=== PATIENT | female | born 1980 | race Caucasian/White ===

== ENCOUNTER 2020-01-06 22:17 | Observation (INO) | payer OTHER ==
[2020-01-06 23:08] LABS: Basophils # (A) 0.1 k/uL (0-0.2); Basophils % (A) 1 %; Eosinophils # (A) 0.3 k/uL (0-0.7); Eosinophils % (A) 4 %; HCT 44.7 % (34.0-46.0); HGB 14.5 gm/dL (11.4-16.0); Lymphocytes # (A) 3.4 k/uL (1.0-4.8); Lymphocytes % (A) 38 %; MCH 29.8 pg (25.0-35.0); MCHC 32.4 g/dL (31.0-37.0); MCV 91.9 fL (80.0-100.0); Mean Platelet Volume 7.2; Monocytes # (A) 0.4 k/uL (0-1.0); Monocytes % (A) 4 %; Neutrophils # (A) 4.5 k/uL (1.3-7.7); Neutrophils % (A) 51 %; Platelet Count 401 k/uL (150-450); RBC 4.87 m/uL (3.80-5.40); RDW 12.6 % (11.5-15.5); WBC 8.9 k/uL (3.8-10.6)
[2020-01-06 23:21] LABS: ALT 50 U/L (4-34); AST 41 U/L (14-36); African American GFR (CKD) >90 (>60 ml/min/1.73 sqM); Albumin 5.1 g/dL (3.5-5.0); Alkaline Phosphatase 94 U/L (38-126); Anion Gap 12 mmol/L; Blood Urea Nitrogen 14 mg/dL (7-17); Carbon Dioxide 25 mmol/L (22-30); Chloride 100 mmol/L (98-107); Glucose 108 mg/dL (74-99); Non-African American GFR(CKD) >90 (>60 ml/min/1.73 sqM); Potassium 3.9 mmol/L (3.5-5.1); Sodium 137 mmol/L (137-145); Total Bilirubin 0.4 mg/dL (0.2-1.3)
[2020-01-06 23:31] LABS: Appearance,Urine Clear (Clear); Bacteria,Urine Occasional /hpf; Bilirubin,Urine Negative (Negative); Blood,Urine Trace (Negative); Color,Urine Light Yellow; Glucose,Urine (UA) Negative (Negative); Ketones,Urine Negative (Negative); Leukocyte Esterase,Urine Negative (Negative); Mucus,Urine Rare /hpf; Nitrite,Urine Negative (Negative); PH, Urine 5.5 (5.0-8.0); Protein,Urine Negative (Negative); RBC,Urine <1 /hpf (0-5); Specific Gravity,Urine 1.008 (1.001-1.035); Squamous Epithelial Cell,Urine 1 /hpf (0-4); Urobilinogen,Urine <2.0 mg/dL (<2.0); WBC,Urine 1 /hpf (0-5)
[2020-01-07] MEDS ORDERED: ONDANSETRON 4 MG/2 ML VIAL IVP STA (00:09)
[2020-01-07] MEDS ORDERED: MORPHINE SULFATE 4 MG/ML SYRINGE IVP STA (00:10)
--- NOTE | 2020-01-07 00:11 | US ---
EXAMINATION TYPE: US transvaginal DATE OF EXAM: 01/06/2020 COMPARISON: CLINICAL HISTORY: pelvic pain. Right side pain, hx of ovarian cysts per patient TECHNIQUE: Transvaginal (TV). Date of LMP: 12/29/2019, EXAM MEASUREMENTS: Uterus: 9.0 x 5.2 x 4.7 cm Endometrial Stripe: cm Right Ovary: 2.9 x 2.4 x 2.1 cm Left Ovary: 3.8 x 2.8 x 2.6 cm 1. Uterus: Anteverted Heterogenous 2. Endometrium: 0.7 3. Right Ovary: follicles 4. Left Ovary: cystic appearing lesion with internal homogenous echoes= 2.6 x2.4 x 2.7 cm Spectral, color and waveform doppler imaging shows good arterial and venous flow within the ovaries ; there is no evidence for ovarian torsion. 5. Bilateral Adnexa: wnl 6. Posterior cul-de-sac: no free fluid IMPRESSION: There is complex cyst on the left ovary with internal echoes that could be hemorrhagic cyst. No free fluid. Normal uterus and endometrium. No evidence of ovarian torsion.
[2020-01-07] MEDS ORDERED: SODIUM CHLORIDE 0.9% 500 ML 500 ML IV ONE (00:40)
[2020-01-07] MEDS ORDERED: SODIUM CHLORIDE 0.9% 1,000 ML IV ONE ×2 (00:40→11:20)
[2020-01-07] MEDS ORDERED: NALOXONE 0.4 MG/ML 1 ML VIAL IV PRN (00:43)
[2020-01-07] MEDS ORDERED: MORPHINE SULFATE 4 MG/ML SYRINGE IV PRN (00:43)
--- NOTE | 2020-01-07 00:43 | ED ---
Abdominal Pain HPI - General Chief Complaint: Abdominal Pain Stated Complaint: Abdominal pain, poss ovarian cyst Time Seen by Provider: 01/06/20 22:42 Source: patient Mode of arrival: ambulatory Limitations: no limitations - History of Present Illness Initial Comments: 39yo female RLQ pain x 1 week. Nausea, no vomiting, No diarrhea. states she has had low grade fever. Patient has no complaints of melena, hematochezia. Denies chest pain, SOB. Patient has no additional complaints. Upon arrival she appears well. She states the pain feels similar to when she has had ovarian cysts in the past. - Related Data Previous Rx's Medication Instructions Recorded Naproxen [Naprosyn] 500 mg PO Q12HR #24 tab 12/29/15 Allergies Allergy/AdvReac Type Severity Reaction Status Date / Time No Known Allergies Allergy Verified 01/06/20 22:35 Review of Systems ROS Statement: Those systems with pertinent positive or pertinent negative responses have been documented in the HPI. ROS Other: All systems not noted in ROS Statement are negative. Past Medical History Additional Past Medical History / Comment(s): sinus infection, yeast infection, ovarian cyst History of Any Multi-Drug Resistant Organisms: None Reported Past Surgical History: Section Past Psychological History: No Psychological Hx Reported Smoking Status: Never smoker Past Alcohol Use History: None Reported Past Drug Use History: None Reported General Exam - General Exam Comments Initial Comments: General: The patient is awake and alert, in no distress Eye: Pupils are equal, round and reactive to light, extra-ocular movements are intact. No nystagmus. There is normal conjunctiva bilaterally. No signs of icterus. Cardiovascular: There is a regular rate and rhythm. No murmur, rub or gallop is appreciated. Respiratory: Lungs are clear to auscultation, respirations are non-labored, breath sounds are equal. No wheezes, stridor, rales, or rhonchi. Gastrointestinal: Soft, non-distended, RLQ tenderness to palpation of the abdomen, specifically McBurneys point, remaining abdomen is nontender and is without masses or organomegaly noted. There is no rebound or guarding present. Musculoskeletal: Normal ROM, no tenderness. Strength 5/5. Sensation intact. Pulses equal bilaterally 2+. Neurological: A&O x 3. CN II-XII intact grossly, There are no obvious motor or sensory deficits. Coordination appears grossly intact. Speech is normal. Skin: Skin is warm and dry and no rashes or lesions are noted. Psychiatric: Cooperative, appropriate mood & affect, normal judgment. Limitations: no limitations Course Vital Signs 01/06/20 22:31 Temperature 98.2 F Pulse Rate 85 Respiratory 20 Rate Blood Pressure 125/85 O2 Sat by Pulse 99 Oximetry Medical Decision Making - Medical Decision Making 39yo female presenting today for RLQ pain. Described as what felt like her ovarian pain. Pain at McBurneys point and US no right sided abnormality. CT obtained revealing acute appendicitis. Patient admitted for surgical cons ultation. Zosyn, IV analgesics and IVF initiated in the ER. Dr. Roberts accepted case after speaking with attending Dr. Ye - Lab Data Result diagrams: 01/06/20 22:50 01/06/20 22:50 Lab Results 01/06/20 01/06/20 01/06/20 Range/Units 22:50 22:50 22:50 WBC 8.9 (3.8-10.6) k/uL RBC 4.87 (3.80-5.40) m/uL Hgb 14.5 (11.4-16.0) gm/dL Hct 44.7 (34.0-46.0) % MCV 91.9 (80.0-100.0) fL MCH 29.8 (25.0-35.0) pg MCHC 32.4 (31.0-37.0) g/dL RDW 12.6 (11.5-15.5) % Plt Count 401 (150-450) k/uL Neutrophils % 51 % Lymphocytes % 38 % Monocytes % 4 % Eosinophils % 4 % Basophils % 1 % Neutrophils # 4.5 (1.3-7.7) k/uL Lymphocytes # 3.4 (1.0-4.8) k/uL Monocytes # 0.4 (0-1.0) k/uL Eosinophils # 0.3 (0-0.7) k/uL Basophils # 0.1 (0-0.2) k/uL Sodium (137-145) mmol/L Potassium (3.5-5.1) mmol/L Chloride (98-107) mmol/L Carbon Dioxide (22-30) mmol/L Anion Gap mmol/L BUN (7-17) mg/dL Creatinine (0.52-1.04) mg/dL Est GFR (CKD-EPI)AfAm (>60 ml/min/1.73 sqM) Est GFR (CKD-EPI)NonAf (>60 ml/min/1.73 sqM) Glucose (74-99) mg/dL Calcium (8.4-10.2) mg/dL Total Bilirubin (0.2-1.3) mg/dL AST (14-36) U/L ALT (4-34) U/L Alkaline Phosphatase (38-126) U/L Total Protein (6.3-8.2) g/dL Albumin (3.5-5.0) g/dL Urine Color Light Yellow Urine Appearance Clear (Clear) Urine pH 5.5 (5.0-8.0) Ur Specific [place] 1.008 (1.001-1.035) Urine Protein Negative (Negative) Urine Glucose (UA) Negative (Negative) Urine Ketones Negative (Negative) Urine Blood Trace H (Negative) Urine Nitrite Negative (Negative) Urine Bilirubin Negative (Negative) Urine Urobilinogen <2.0 (<2.0) mg/dL Ur Leukocyte Esterase Negative (Negative) Urine RBC <1 (0-5) /hpf Urine WBC 1 (0-5) /hpf Ur Squamous Epith Cells 1 (0-4) /hpf Urine Bacteria Occasional H (None) /hpf Urine Mucus Rare H (None) /hpf Urine HCG, Qual Not Detected (Not Detectd) 01/06/20 Range/Units 22:50 WBC (3.8-10.6) k/uL RBC (3.80-5.40) m/uL Hgb (11.4-16.0) gm/dL Hct (34.0-46.0) % MCV (80.0-100.0) fL MCH (25.0-35.0) pg MCHC (31.0-37.0) g/dL RDW (11.5-15.5) % Plt Count (150-450) k/uL Neutrophils % % Lymphocytes % % Monocytes % % Eosinophils % % Basophils % % Neutrophils # (1.3-7.7) k/uL Lymphocytes # (1.0-4.8) k/uL Monocytes # (0-1.0) k/uL Eosinophils # (0-0.7) k/uL Basophils # (0-0.2) k/uL Sodium 137 (137-145) mmol/L Potassium 3.9 (3.5-5.1) mmol/L Chloride 100 (98-107) mmol/L Carbon Dioxide 25 (22-30) mmol/L Anion Gap 12 mmol/L BUN 14 (7-17) mg/dL Creatinine 0.74 (0.52-1.04) mg/dL Est GFR (CKD-EPI)AfAm >90 (>60 ml/min/1.73 sqM) Est GFR (CKD-EPI)NonAf >90 (>60 ml/min/1.73 sqM) Glucose 108 H (74-99) mg/dL Calcium 10.0 (8.4-10.2) mg/dL Total Bilirubin 0.4 (0.2-1.3) mg/dL AST 41 H (14-36) U/L ALT 50 H (4-34) U/L Alkaline Phosphatase 94 (38-126) U/L Total Protein 9.0 H (6.3-8.2) g/dL Albumin 5.1 H (3.5-5.0) g/dL Urine Color Urine Appearance (Clear) Urine pH (5.0-8.0) Ur Specific [place] (1.001-1.035) Urine Protein (Negative) Urine Glucose (UA) (Negative) Urine Ketones (Negative) Urine Blood (Negative) Urine Nitrite (Negative) Urine Bilirubin (Negative) Urine Urobilinogen (<2.0) mg/dL Ur Leukocyte Esterase (Negative) Urine RBC (0-5) /hpf Urine WBC (0-5) /hpf Ur Squamous Epith Cells (0-4) /hpf Urine Bacteria (None) /hpf Urine Mucus (None) /hpf Urine HCG, Qual (Not Detectd) Disposition Clinical Impression: Appendicitis, Right lower quadrant abdominal pain Disposition: ADMITTED IP TO THIS HOSP Condition: Stable Is patient prescribed a controlled substance at d/c from ED?: No Referrals: Ang Meyers MD [Primary Care Provider] - 1-2 days Time of Disposition: 00:42 Decision to Admit Reason: Admit from EC Decision Date: 01/07/20 Decision Time: 00:42
[2020-01-07] MEDS ORDERED: PIPERACILLIN-TAZOBACTAM 3.375 GM in SODIUM CHLORIDE 0.9% 100 ML IVPB ONE (00:45)
--- NOTE | 2020-01-07 00:45 | CT ---
EXAMINATION TYPE: CT abdomen pelvis w con DATE OF EXAM: 01/07/2020 COMPARISON: None HISTORY: RLQ abdominal pain. CT DLP: 827.6 mGycm Automated exposure control for dose reduction was used. CONTRAST: Performed with IV Contrast, patient injected with 100mL mL of Isovue 300. Images were obtained from the diaphragm to the floor the pelvis with IV contrast. Lung bases are clear. There is no pleural effusion. Heart size is normal. There is no pericardial eff usion. Liver spleen stomach pancreas gallbladder appear normal. Bile ducts are not dilated. There is no adrenal mass. Kidneys show satisfactory contrast opacification. There is no hydronephrosi s. Ureters are not dilated. Bladder distends smoothly. There is no inguinal hernia. Uterus is antever carlita. There is no free fluid in the pelvis. There is 4 cm rounded fluid density on the left ovary. There ar e small cyst on the right ovary that measure up to 1.5 cm. There is no mesenteric edema. There is no ascites or free air. There is no bowel obstruction. Termina l ileum appears normal. There is minimal fat stranding and fluid in the right paracolic gutter. Cecum appears normal. I see no cecal wall thickening. The appendix is partly visualized and measures 7 to 8 mm. The lumbar vertebra have normal spacing and alignment. Posterior elements are intact. Bony pelvis is intact. IMPRESSION: Bilateral ovarian cysts. Larger on the left side. Inflammatory changes around the cecum with suggestion of slightly thickened appendix that measures up to 8 mm and suspicious for appendicitis.
[2020-01-07] MEDS: SODIUM CHLORIDE 0.9% 1,000 ML IV SCH ×3 (01:18→16:40)
[2020-01-07] MEDS ORDERED: HYDROmorphone 1 MG/ML 1 ML SYRINGE IVP PRN (01:50)
[2020-01-07 06:29] LABS: Glucose,Whole Blood 95 mg/dL (75-99)
--- NOTE | 2020-01-07 10:48 | P.GSHP ---
History of Present Illness H&P Date: 01/07/20 Chief Complaint: Abdominal pain 39-year-old female presents to the ER yesterday with right lower quadrant pain. This is actually been going on for she states almost a week. Said she had some low-grade fevers as well. Slightly diminished appetite. No vomiting. Mild nausea. White blood cell count here is normal. Says her pain is similar to when she said ovarian cysts in the past. Ultrasound of the pelvis showed no definite abnormalities. She is afebrile here. CAT scan was obtained and demonstrates thickened appendix with inflammatory changes consistent with acute appendicitis. - Review of Systems Comment: The patient denies any acute changes in vision or hearing, no dysphagia or odynophagia, no chest pain or shortness of breath, no dysuria or hematuria, no headache, no runny nose, no rectal bleeding or melena, no unexplained weight loss Past Medical History Additional Past Medical History / Comment(s): sinus infection, yeast infection, ovarian cyst. Heavy periods History of Any Multi-Drug Resistant Organisms: None Reported Past Surgical History: Section Past Anesthesia/Blood Transfusion Reactions: No Reported Reaction Past Psychological History: No Psychological Hx Reported Smoking Status: Former smoker Past Alcohol Use History: None Reported Past Drug Use History: None Reported - Past Family History Mother Family Medical History: Hyperlipidemia Father Family Medical History: Myocardial Infarction (ND) Additional Family Medical History / Comment(s): Heavy heart disease history Medications and Allergies Home Medications Medication Instructions Recorded Confirmed Type Naproxen Sodium [Aleve] 440 mg PO Q4-6H PRN 01/07/20 01/07/20 History Allergies Allergy/AdvReac Type Severity Reaction Status Date / Time No Known Allergies Allergy Verified 01/07/20 08:42 Surgical - Exam Vital Signs Temp Pulse Resp BP Pulse Ox 98.2 F 85 20 125/85 99 01/06/20 22:31 01/06/20 22:31 01/06/20 22:31 01/06/20 22:31 01/06/20 22:31 Physical exam: General: Well-developed, well-nourished HEENT: Normocephalic, sclerae nonicteric Abdomen: Right lower quadrant tenderness, nondistended Extremities: No edema Neuro: Alert and oriented Results - Labs 01/06/20 22:50 01/06/20 22:50 Abnormal Lab Results - Last 24 Hours (Table) 01/06/20 01/06/20 Range/Units 22:50 22:50 Glucose 108 H (74-99) mg/dL AST 41 H (14-36) U/L ALT 50 H (4-34) U/L Total Protein 9.0 H (6.3-8.2) g/dL Albumin 5.1 H (3.5-5.0) g/dL Urine Blood Trace H (Negative) Urine Bacteria Occasional H (None) /hpf Urine Mucus Rare H (None) /hpf Diabetes panel 01/06/20 Range/Units 22:50 Sodium 137 (137-145) mmol/L Potassium 3.9 (3.5-5.1) mmol/L Chloride 100 (98-107) mmol/L Carbon Dioxide 25 (22-30) mmol/L BUN 14 (7-17) mg/dL Creatinine 0.74 (0.52-1.04) mg/dL Glucose 108 H (74-99) mg/dL Calcium 10.0 (8.4-10.2) mg/dL AST 41 H (14-36) U/L ALT 50 H (4-34) U/L Alkaline Phosphatase 94 (38-126) U/L Total Protein 9.0 H (6.3-8.2) g/dL Albumin 5.1 H (3.5-5.0) g/dL Calcium panel 01/06/20 Range/Units 22:50 Calcium 10.0 (8.4-10.2) mg/dL Albumin 5.1 H (3.5-5.0) g/dL Pituitary panel 01/06/20 Range/Units 22:50 Sodium 137 (137-145) mmol/L Potassium 3.9 (3.5-5.1) mmol/L Chloride 100 (98-107) mmol/L Carbon Dioxide 25 (22-30) mmol/L BUN 14 (7-17) mg/dL Creatinine 0.74 (0.52-1.04) mg/dL Glucose 108 H (74-99) mg/dL Calcium 10.0 (8.4-10.2) mg/dL Adrenal panel 01/06/20 Range/Units 22:50 Sodium 137 (137-145) mmol/L Potassium 3.9 (3.5-5.1) mmol/L Chloride 100 (98-107) mmol/L Carbon Dioxide 25 (22-30) mmol/L BUN 14 (7-17) mg/dL Creatinine 0.74 (0.52-1.04) mg/dL Glucose 108 H (74-99) mg/dL Calcium 10.0 (8.4-10.2) mg/dL Total Bilirubin 0.4 (0.2-1.3) mg/dL AST 41 H (14-36) U/L ALT 50 H (4-34) U/L Alkaline Phosphatase 94 (38-126) U/L Total Protein 9.0 H (6.3-8.2) g/dL Albumin 5.1 H (3.5-5.0) g/dL Assessment and Plan (1) Appendicitis Narrative/Plan: Clinical scenario discussed with the patient. We'll proceed with laparoscopic, possible open appendectomy at this time. Risks of bleeding, infection, abscess, bladder bowel and ureteral injury, hernia, conversion to an open procedure. She understands and wishes to proceed. Current Visit: Yes Status: Acute Code(s): K37 - UNSPECIFIED APPENDICITIS SNOMED Code(s): 99532453
[2020-01-07] MEDS: PIPERACILLIN-TAZOBACTAM 3.375 GM in SODIUM CHLORIDE 0.9% 100 ML IVPB SCH ×2 (11:00→16:39)
[2020-01-07] MEDS ORDERED: PROPOFOL 10 MG/ML 20 ML VIAL IV ONE (11:15)
[2020-01-07] MEDS ORDERED: NEOSTIGMINE 1 MG/ML 10 ML VIAL ONE (11:15)
[2020-01-07] MEDS ORDERED: MIDAZOLAM 2 MG/2 ML VIAL ONE (11:15)
[2020-01-07] MEDS ORDERED: SUCCINYLCHOLINE CHLORIDE 100 MG/5 ML SYR IV ONE (11:15)
[2020-01-07] MEDS ORDERED: GLYCOPYRROLATE 0.2 MG/ML 2 ML VIAL ONE (11:15)
[2020-01-07] MEDS ORDERED: fentaNYL (PF) 50 MCG/ML 2 ML AMP ONE (11:15)
[2020-01-07] MEDS ORDERED: HYDROmorphone (PF) 1 MG/ML ONE (11:15)
[2020-01-07] MEDS ORDERED: ROCURONIUM BROMIDE 10 MG/ML 5 ML VIAL IV ONE (11:15)
[2020-01-07] MEDS ORDERED: LIDOCAINE 1% INJ 10MG/ML (20 ML MDV) ONE (11:15)
[2020-01-07] MEDS ORDERED: LIDOCAINE 1%-EPI 1:100,000 20 ML VIAL SQ ONE (11:59)
[2020-01-07] MEDS ORDERED: LACTATED RINGERS 1,000 ML IV ONE (12:10)
[2020-01-07] MEDS ORDERED: ACETAMINOPHEN IV (For NPO) 1,000 MG in EMPTY BAG 1 BAG IVPB ONE (12:37)
--- NOTE | 2020-01-07 12:46 | P.OP ---
Date of Procedure: 01/07/20 Procedure(s) Performed: PREOPERATIVE DIAGNOSIS: Acute appendicitis POSTOPERATIVE DIAGNOSIS: Severe endometriosis with acute appendicitis PROCEDURE: Laparoscopic appendectomy SURGEON: Alejandra EBL: 20 mL ANESTHESIA: General COMPLICATIONS: None OPERATIVE PROCEDURE: The patient was brought and placed on the operating table in the supine position. The patient was placed under general anesthesia. The abdomen was prepped and draped in the usual sterile fashion. A small vertical infraumbilical incision was made. The fascia was retracted anteriorly with Efra forceps. The Veress needle was advanced into the peritoneal cavity. The saline drop test was normal. Insufflation took place to 15 mmHg. A 5 mm trocar was then placed. An additional 5 mm suprapubic trocar was placed under direct visualization as well as a 12 mm left lower quadrant trocar under direct visualization. The patient had some bloody fluid in the pelvis from recent menses. We quickly identified numerous endometriosis deposits throughout the pelvis both on the small bowel, colon, and reproductive organs. The ovaries and fallopian tubes appeared to be densely adherent to the posterior wall of the uterus. There was significant inflammation on a chronic nature between the posterior aspect of the uterus and the sigmoid colon as well. The appendix was not visualized immediately. There was induration at the base of the cecum with again a hemorrhagic appearance consistent with acute on chronic endometriosis. The LigaSure device and the pusher was utilized to identify the appendix junction with the cecum. This was mildly inflamed as well. The appendix seemed to be fairly short in nature and was controlled back on itself and stuck to itself from the endometriosis. No evidence of perforation or gangrene was seen. I was able to utilize the endoscopic blue load stapler to divide the appendix more on the cecum side than typical removing a small portion of the base of the cecum. We were away from the ileocecal valve when stapling. Small area of bleeding was seen along the staple line and clipped using a 12 m clipper. The mesoappendix had been divided using the LigaSure device. One identifiable vessel in the mesoappendix was clipped as well. The appendix was removed from the abdominal cavity using an Endo Catch bag. The abdomen was irrigated. No bleeding was seen. The fascia at the 12 mm site was closed using a [id number] 0 Vicryl stitch. The skin at all 3 sites was closed using 4-0 Monocryl sutures. Skin glue was then applied. DISPOSITION: Stable to recovery room
[2020-01-07] MEDS ORDERED: HYDROmorphone 1 MG/ML 1 ML SYRINGE IVP ONE ×3 (13:13→13:20)
[2020-01-07] MEDS ORDERED: KETOROLAC 30 MG/ML 1 ML VIAL IVP ONE ×2 (13:18→13:19)
[2020-01-07] MEDS ORDERED: ACETAMINOPHEN IV (For NPO) 1,000 MG/100 ML VIAL IVPB ONE ×2 (13:28)
[2020-01-07] MEDS ORDERED: HYDROmorphone 0.5 MG/0.5 ML SYRINGE IVP ONE ×2 (13:40→13:44)
[2020-01-07] MEDS: HEPARIN SODIUM,PORCINE 5,000 UNIT/ML 1 ML VIAL SQ SCH (16:39)
[2020-01-07] MEDS: HYDROmorphone 1 MG/ML 1 ML SYRINGE IVP PRN ×2 (16:46→22:32)
[2020-01-07] MEDS: ONDANSETRON 4 MG/2 ML VIAL IVP PRN (21:06)
[2020-01-08] MEDS: PIPERACILLIN-TAZOBACTAM 3.375 GM in SODIUM CHLORIDE 0.9% 100 ML IVPB SCH ×2 (00:27→09:05)
[2020-01-08] MEDS: HEPARIN SODIUM,PORCINE 5,000 UNIT/ML 1 ML VIAL SQ SCH ×2 (00:27→09:05)
[2020-01-08] MEDS: SODIUM CHLORIDE 0.9% 1,000 ML IV SCH ×2 (00:28→09:07)
[2020-01-08] MEDS: ONDANSETRON 4 MG/2 ML VIAL IVP PRN (04:44)
[2020-01-08] MEDS: HYDROcodone/APAP 5-325MG 1 EACH TAB PO PRN ×3 (04:44→13:17)
[2020-01-08 07:55] LABS: Basophils % (A) 0 %; Eosinophils # (A) 0.1 k/uL (0-0.7); Eosinophils % (A) 1 %; HCT 34.3 % (34.0-46.0); Lymphocytes # (A) 2.3 k/uL (1.0-4.8); Lymphocytes % (A) 24 %; MCH 29.8 pg (25.0-35.0); MCHC 32.1 g/dL (31.0-37.0); MCV 92.8 fL (80.0-100.0); Mean Platelet Volume 7.2; Monocytes # (A) 0.4 k/uL (0-1.0); Monocytes % (A) 4 %; Neutrophils # (A) 6.7 k/uL (1.3-7.7); Neutrophils % (A) 69 %; Platelet Count 253 k/uL (150-450); RDW 12.8 % (11.5-15.5); WBC 9.7 k/uL (3.8-10.6)
--- NOTE | 2020-01-08 08:54 | P.DS ---
Providers Date of admission: 01/07/20 01:42 Expected date of discharge: 01/08/20 Attending physician: David Roberts Primary care physician: Ang Meyers - Discharge Diagnosis(es) (1) Appendicitis Patient minute yesterday for acute appendicitis. Was found to have fairly severe endometriosis. This was contributing to the appendicitis. Doing better today. Pain is improved. She is afebrile. 1 episode of vomiting yesterday. Tolerated breakfast this morning. Incisions clean and dry. Anticipate discharge later today. Follow-up one week. Current Visit: Yes Status: Acute Patient Condition at Discharge: Stable Plan - Discharge Summary New Discharge Prescriptions: New Hydrocodone/Acetaminophen [[place] 5-325] 1 tab PO Q6HR PRN 3 Days #10 tab PRN Reason: Pain No Action Naproxen Sodium [Aleve] 440 mg PO Q4-6H PRN PRN Reason: Pain Discharge Medication List Hydrocodone/Acetaminophen [[place] 5-325] 1 tab PO Q6HR PRN 3 Days #10 tab 01/07/20 [Rx] Naproxen Sodium [Aleve] 440 mg PO Q4-6H PRN 01/07/20 [History] Follow up Appointment(s)/Referral(s): David Roberts MD [Medical Doctor] - 1 Week Agn Meyers MD [Primary Care Provider] - 1-2 days
[2020-01-08 09:20] VITALS: PULSE 68; RESP 16
[2020-01-08 11:54] VITALS: BP 104/65; TEMP 98.4
== END 2020-01-08 16:20 | disposition home or self-care (01) ==
LOC: EC 22:17 → 6PED 01-07 01:42
PROVIDERS: ADMIT Surgery; ATTEND Surgery
DX: K35.80 Unspecified acute appendicitis (principal); N80.5 Endometriosis of intestine; K21.9 Gastro-esophageal reflux disease without esophagitis; J45.909 Unspecified asthma, uncomplicated; N83.209 Unspecified ovarian cyst, unspecified side; N92.0 Excessive and frequent menstruation with regular cycle; Z87.891 Personal history of nicotine dependence; Z82.49 Family history of ischemic heart disease and other diseases of the circulatory system; Z79.1 Long term (current) use of non-steroidal anti-inflammatories (NSAID); Z11.59 Encounter for screening for other viral diseases
CPT/HCPCS: 44970; 99285; 36415; 80053; 85025 ×2; 81001; 81025; 93975; 76830; 74177; G0378 ×2; U0003; J2543 ×2; J2270; J1644 ×2; J2405 ×2; J1885; J1170 ×2; J0131; Q9967; 88304; 88342

== ENCOUNTER 2020-02-21 12:18 | Emergency (ER) | payer OTHER ==
[2020-02-21 12:26] VITALS: RESP 18; TEMP 98.4
[2020-02-21] MEDS ORDERED: ONDANSETRON 4 MG/2 ML VIAL IVP STA (12:45)
[2020-02-21] MEDS ORDERED: HYDROmorphone 0.5 MG/0.5 ML SYRINGE IVP STA (12:45)
[2020-02-21] MEDS ORDERED: SODIUM CHLORIDE 0.9% 1,000 ML IV STA ×2 (12:45)
[2020-02-21 13:05] LABS: Appearance,Urine Clear (Clear); Bilirubin,Urine Negative (Negative); Blood,Urine Negative (Negative); Color,Urine Colorless; Glucose,Urine (UA) Negative (Negative); Ketones,Urine 1+ (Negative); Leukocyte Esterase,Urine Negative (Negative); Nitrite,Urine Negative (Negative); PH, Urine 5.5 (5.0-8.0); Protein,Urine Negative (Negative); Specific Gravity,Urine 1.002 (1.001-1.035); Urobilinogen,Urine <2.0 mg/dL (<2.0)
[2020-02-21 13:06] LABS: Basophils # (A) 0.1 k/uL (0-0.2); Basophils % (A) 1 %; Eosinophils # (A) 0.2 k/uL (0-0.7); Eosinophils % (A) 3 %; HCT 40.8 % (34.0-46.0); HGB 13.3 gm/dL (11.4-16.0); Lymphocytes # (A) 2.5 k/uL (1.0-4.8); Lymphocytes % (A) 32 %; MCH 29.5 pg (25.0-35.0); MCHC 32.5 g/dL (31.0-37.0); MCV 90.6 fL (80.0-100.0); Mean Platelet Volume 7.1; Monocytes # (A) 0.4 k/uL (0-1.0); Monocytes % (A) 5 %; Neutrophils # (A) 4.4 k/uL (1.3-7.7); Neutrophils % (A) 57 %; Platelet Count 282 k/uL (150-450); RDW 12.6 % (11.5-15.5); WBC 7.7 k/uL (3.8-10.6)
[2020-02-21 13:20] LABS: ALT 25 U/L (4-34); AST 27 U/L (14-36); African American GFR (CKD) >90 (>60 ml/min/1.73 sqM); Albumin 4.8 g/dL (3.5-5.0); Alkaline Phosphatase 107 U/L (38-126); Amylase 60 U/L (30-110); Anion Gap 11 mmol/L; Blood Urea Nitrogen 9 mg/dL (7-17); Calcium 9.9 mg/dL (8.4-10.2); Carbon Dioxide 23 mmol/L (22-30); Chloride 102 mmol/L (98-107); Glucose 93 mg/dL (74-99); Non-African American GFR(CKD) 88 (>60 ml/min/1.73 sqM); Sodium 136 mmol/L (137-145); Total Bilirubin 0.8 mg/dL (0.2-1.3)
--- NOTE | 2020-02-21 14:11 | ED ---
Abdominal Pain HPI - General Source: patient, RN notes reviewed, old records reviewed Mode of arrival: ambulatory Limitations: no limitations <Harriett Coleman - Last Filed: 02/22/20 07:01> <María Elena Valdez - Last Filed: 02/22/20 23:09> - General Chief Complaint: Abdominal Pain Stated Complaint: Nausea, rt sided flank pain Time Seen by Provider: 02/21/20 12:30 - History of Present Illness Initial Comments: 39-year-old female with recent history of appendectomy and later mononucleosis, whom returned today with recurrent right upper quadrant abdominal pain unable to eat. Complains of vomiting episodes. Patient reports that she had her appendectomy approximately 3 weeks ago[address] Her surgeons Dr. Roberts. She questions if she may be dealing with earlier acholic she's had this persistent pain. She also complains of some left upper quadrant pain and saw her primary care doctor after being diagnosed with mono. An ultrasound which showed evidence of cholelithiasis and no significant spleen enlargement. Patient denies any trauma to the abdomen. She denies any fevers or chills. (Harriett Coleman) - Related Data Home Medications Medication Instructions Recorded Confirmed Ergocalciferol [Vitamin D2] 50,000 unit PO Q7D 02/21/20 02/21/20 Ondansetron HCl [Zofran] 8 mg PO BID PRN 02/21/20 02/21/20 Previous Rx's Medication Instructions Recorded Metoclopramide [Reglan] 10 mg PO ACHS #12 tab 02/21/20 Pantoprazole Sodium [Protonix] 40 mg PO DAILY #20 tablet. 02/21/20 Allergies Allergy/AdvReac Type Severity Reaction Status Date / Time No Known Allergies Allergy Verified 02/21/20 13:19 Review of Systems ROS Other: All systems not noted in ROS Statement are negative. <Harriett Coleman - Last Filed: 02/22/20 07:01> ROS Other: All systems not noted in ROS Statement are negative. <María Elena Valdez - Last Filed: 02/22/20 23:09> ROS Statement: Those systems with pertinent positive or pertinent negative responses have been documented in the HPI. Past Medical History Additional Past Medical History / Comment(s): sinus infection, yeast infection, ovarian cyst, endometriosis. Heavy periods History of Any Multi-Drug Resistant Organisms: None Reported Past Surgical History: Appendectomy, Section Past Anesthesia/Blood Transfusion Reactions: No Reported Reaction Past Psychological History: No Psychological Hx Reported Smoking Status: Never smoker Past Alcohol Use History: None Reported Past Drug Use History: None Reported - Past Family History Mother Family Medical History: Hyperlipidemia Father Family Medical History: Myocardial Infarction ([place]) Additional Family Medical History / Comment(s): Heavy heart disease history <Harriett Coleman - Last Filed: 02/22/20 07:01> General Exam Limitations: no limitations General appearance: alert, in no apparent distress Head exam: Present: atraumatic, normocephalic, normal inspection Eye exam: Present: normal appearance, PERRL, EOMI. Absent: scleral icterus, conjunctival injection, periorbital swelling ENT exam: Present: normal exam, mucous membranes moist Neck exam: Present: normal inspection. Absent: tenderness, meningismus, lymphadenopathy Respiratory exam: Present: normal lung sounds bilaterally. Absent: respiratory distress, wheezes, rales, rhonchi, stridor Cardiovascular Exam: Present: regular rate, normal rhythm, normal heart sounds. Absent: systolic murmur, diastolic murmur, rubs, gallop, clicks Extremities exam: Present: normal inspection, full ROM, normal capillary refill. Absent: tenderness, pedal edema, joint swelling, calf tenderness Back exam: Present: normal inspection Neurological exam: Present: alert, oriented X3, CN II-XII intact Psychiatric exam: Present: normal affect, normal mood Skin exam: Present: warm, dry, intact, normal color. Absent: rash <Harriett Coleman - Last Filed: 02/22/20 07:01> - General Exam Comments Initial Comments: Alert and oriented 39-year-old female. No distress. (Harriett Coleman) Course Vital Signs 02/21/20 02/21/20 12:19 15:24 Temperature 98.4 F Pulse Rate 86 80 Respiratory 18 18 Rate Blood Pressure 118/76 118/74 O2 Sat by Pulse 100 98 Oximetry Medical Decision Making - Lab Data Result diagrams: 02/21/20 12:47 02/21/20 12:47 - Radiology Data Radiology results: report reviewed <Harriett Coleman - Last Filed: 02/22/20 07:01> - Lab Data Result diagrams: 02/21/20 12:47 02/21/20 12:47 <María Elena Valdez - Last Filed: 02/22/20 23:09> - Medical Decision Making 39 year old female presents today for concern for upper abdominal pain and vomiting episodes and general nausea. Patient was recently had appendectomy and later was cyanosis of mono in the past few months. She does have some tenderness over the left upper and right upper quadrant this time. Labs reviewed today andchange. Due to Persistent pain computed tomography scan wasordered. Evidence of ovarian cyst but no other significant changes. This Patient is likely exhibiting signs of biliary colic or gastritis and advised to discharge Patient with reglan and follow-upwithsurgeon for further evaluation possible HIDA scans .Patient understands treatment plan will comply. (Harriett Coleman) I was available for consultation in the emergency department. The history and physical exam were done by the midlevel provider. I was consulted for this patients care. I reviewed the case with the midlevel provider and based on their presentation of the patient, I agree with the assessment, medical decision making and plan of care as documented. Chart was dictated using [employer] dictation software. Attempts were made to correct any dictation errors however some typographical errors may persist. Patient was seen during a national state of emergency due to the Covid-19 pandemic. (María Elena Valdez) - Lab Data Lab Results 02/21/20 02/21/20 02/21/20 Range/Units 12:47 12:47 12:47 WBC 7.7 (3.8-10.6) k/uL RBC 4.50 (3.80-5.40) m/uL Hgb 13.3 (11.4-16.0) gm/dL Hct 40.8 (34.0-46.0) % MCV 90.6 (80.0-100.0) fL MCH 29.5 (25.0-35.0) pg MCHC 32.5 (31.0-37.0) g/dL RDW 12.6 (11.5-15.5) % Plt Count 282 (150-450) k/uL Neutrophils % 57 % Lymphocytes % 32 % Monocytes % 5 % Eosinophils % 3 % Basophils % 1 % Neutrophils # 4.4 (1.3-7.7) k/uL Lymphocytes # 2.5 (1.0-4.8) k/uL Monocytes # 0.4 (0-1.0) k/uL Eosinophils # 0.2 (0-0.7) k/uL Basophils # 0.1 (0-0.2) k/uL Sodium 136 L (137-145) mmol/L Potassium 4.0 (3.5-5.1) mmol/L Chloride 102 (98-107) mmol/L Carbon Dioxide 23 (22-30) mmol/L Anion Gap 11 mmol/L BUN 9 (7-17) mg/dL Creatinine 0.85 (0.52-1.04) mg/dL Est GFR (CKD-EPI)AfAm >90 (>60 ml/min/1.73 sqM) Est GFR (CKD-EPI)NonAf 88 (>60 ml/min/1.73 sqM) Glucose 93 (74-99) mg/dL Calcium 9.9 (8.4-10.2) mg/dL Total Bilirubin 0.8 (0.2-1.3) mg/dL AST 27 (14-36) U/L ALT 25 (4-34) U/L Alkaline Phosphatase 107 (38-126) U/L Total Protein 8.0 (6.3-8.2) g/dL Albumin 4.8 (3.5-5.0) g/dL Amylase 60 (30-110) U/L Lipase 61 (23-300) U/L Urine Color Colorless Urine Appearance Clear (Clear) Urine pH 5.5 (5.0-8.0) Ur Specific [place] 1.002 (1.001-1.035) Urine Protein Negative (Negative) Urine Glucose (UA) Negative (Negative) Urine Ketones 1+ H (Negative) Urine Blood Negative (Negative) Urine Nitrite Negative (Negative) Urine Bilirubin Negative (Negative) Urine Urobilinogen <2.0 (<2.0) mg/dL Ur Leukocyte Esterase Negative (Negative) - Radiology Data CT has shows evidence of progression of was believed to be bilateral ovarian cysts. Hepatic steatosis. (Harriett Coleman) Disposition Is patient prescribed a controlled substance at d/c from ED?: No Time of Disposition: 15:16 <Harriett Coleman - Last Filed: 02/22/20 07:01> <María Elena Valdez - Last Filed: 02/22/20 23:09> Clinical Impression: Right upper quadrant abdominal pain, Nausea Disposition: HOME SELF-CARE Condition: Good Instructions (If sedation given, give patient instructions): Abdominal Pain (ED) Additional Instructions: Please use medication as discussed. Please follow up with family doctor if symptoms have not improved over the next two days. Please return to the emergency room if your symptoms increase or worsen or for any other concerns. Prescriptions: Pantoprazole Sodium [Protonix] 40 mg PO DAILY #20 tablet. Metoclopramide [Reglan] 10 mg PO ACHS #12 tab Referrals: Ang Meyers MD [Primary Care Provider] - 1-2 days Pete Orlando MD [STAFF PHYSICIAN] - 1-2 days Ana Harris MD [STAFF PHYSICIAN] - 1-2 days
--- NOTE | 2020-02-21 14:39 | CT ---
EXAMINATION TYPE: CT abdomen pelvis w con DATE OF EXAM: 02/21/2020 COMPARISON: Prior CT 01/07/2020 HISTORY: Patient having right upper quadrant pain. History of gall stones. Patient has nausea. CT DLP: 784.2 mGycm Automated exposure control for dose reduction was used. TECHNIQUE: Helical acquisition of images from the lung bases through the pelvis have been completed. CONTRAST: Performed without Oral Contrast and with IV Contrast, patient injected with 100 mL of Isovue 300. FINDINGS: Small umbilical hernia contains fat LUNG BASES: No significant abnormality is appreciated. AORTA: No significant abnormality is appreciated. LIVER/GB: Low-attenuation within the liver may be due to hepatic steatosis, gallbladder is unremarkab [id number]. PANCREAS: No significant abnormality is seen. SPLEEN: No significant abnormality is seen. ADRENALS: No significant abnormality is seen. KIDNEYS: No significant abnormality is seen. REPRODUCTIVE ORGANS: Bilateral cystic foci present within the ovary suspected, left side measures 4.2 cm which is increased compared to prior when it measured 2.2, right side measures 3.4 cm which is in creased compared to prior when it measured approximately 2.9 cm BOWEL: No significant abnormality is seen. Patient is post appendectomy. FREE AIR: No Free Air visible. ASCITES: None visible. PELVIC ADENOPATHY: None visualized. RETROPERITONEAL ADENOPATHY: No Retroperitoneal Adenopathy visible. URINARY BLADDER: No significant abnormality is seen. OSSEOUS STRUCTURES: No significant abnormality is seen. IMPRESSION: PROGRESSION IN WHAT IS BELIEVED TO BE BILATERAL OVARIAN CYSTS. Hepatic steatosis.
[2020-02-21 15:28] VITALS: BP 118/74; PULSE 80
== END 2020-02-21 15:24 | disposition home or self-care (01) ==
LOC: EC 12:18
DX: R10.11 Right upper quadrant pain (principal); R10.12 Left upper quadrant pain; R11.2 Nausea with vomiting, unspecified; N83.209 Unspecified ovarian cyst, unspecified side; Z90.49 Acquired absence of other specified parts of digestive tract; Z53.29 Procedure and treatment not carried out because of patient's decision for other reasons
CPT/HCPCS: 36415; 80053; 82150; 83690; 85025; 81003; 74177; 99284; 96374; 96361; J2405; Q9967

== ENCOUNTER → 2020-02-28 | Day surgery (SDC) | payer OTHER ==
[~2020-02-28] MED LIST: IV FLUID CONTINUATION 1,000 ML IV ONE; LIDOCAINE 1% (10MG/ML) FOR IV START INTRADERMA ONE; LIDOCAINE 1% INJ 10MG/ML (20 ML MDV) ONE; PROPOFOL 10 MG/ML 20 ML VIAL IV ONE
[2020-02-28 12:24] VITALS: TEMP 98.8
--- NOTE | 2020-02-28 13:05 | P.PCN ---
Date of Procedure: 02/28/20 Procedure(s) Performed: BRIEF HISTORY: Patient is a 39-year-old, pleasant, white female scheduled for an upper endoscopy as a part of evaluation of epigastric pain as well as persistent nausea for the last 3 months duration. She has been on Protonix 40 mg daily as well as Zofran with some help. She is hence scheduled for an upper endoscopy to evaluate further.. PROCEDURE PERFORMED: Esophagogastroduodenoscopy with biopsy PREOPERATIVE DIAGNOSIS: Epigastric pain and nausea of 3 months duration. IV sedation per anesthesia. PROCEDURE: After informed consent was obtained, the patient was brought into the endoscopy unit. IV sedation was administered by Anesthesia under continuous monitoring. Initially the Olympus GIF-140 video endoscope was inserted into the mouth. Esophagus intubated without any difficulty. It was gradually advanced into the stomach and duodenum and carefully examined. The bulb and the second part of the duodenum appeared normal. Biopsies were done from the duodenum to rule out celiac disease. The scope at this time was withdrawn to the stomach, adequately insufflated with air, and upon careful examination, mucosa of the antrum, had mild gastritis and biopsies were done from this area. The body, cardia and the fundus appeared normal. The scope was then withdrawn into the esophagus. The GE junction was located at 39 cm from the incisors. The esophagus appeared normal. There were no erosions or ulcerations seen . Mild circumferential erythema the GE junction noted with LA grade a reflux esophagitis, biopsies were done from the distal esophagus and the patient tolerated the procedure well. IMPRESSION: 1. Mild antral gastritis. 2. Mild circumferential erythema the GE junction consistent with LA grade a reflux esophagitis. RECOMMENDATIONS: The findings of this examination were discussed with the patient as well as a family. She was advised to follow with the biopsy results.. She will continue with her current medications and follow antireflux measures and she'll be seen in office in 2 weeks.
[2020-02-28 13:13] VITALS: RESP 16
[2020-02-28 13:34] VITALS: BP 105/70; PULSE 85
== END ==
LOC: ORWHC2ENDO 11:50
PROVIDERS: ATTEND Internal Medicine Gastroenterology
DX: K29.70 Gastritis, unspecified, without bleeding (principal); K31.9 Disease of stomach and duodenum, unspecified; K21.0 Gastro-esophageal reflux disease with esophagitis; Z79.899 Other long term (current) drug therapy
CPT/HCPCS: 81025; 88305; 43239; J2001; J2704

== ENCOUNTER 2022-08-29 12:38 | Emergency (ER) | payer OTHER ==
[2022-08-29 12:48] VITALS: TEMP 98.3
[2022-08-29] MEDS ORDERED: ONDANSETRON 4 MG/2 ML VIAL IVP STA (13:04)
[2022-08-29] MEDS ORDERED: KETOROLAC 15 MG/ML 1 ML VIAL IVP STA (13:05)
[2022-08-29] MEDS ORDERED: SODIUM CHLORIDE 0.9% 1,000 ML IV STA (13:05)
[2022-08-29 13:28] LABS: Basophils # (A) 0.1 k/uL (0-0.2); Basophils % (A) 1 %; Eosinophils # (A) 0.1 k/uL (0-0.7); Eosinophils % (A) 1 %; HCT 38.5 % (34.0-46.0); HGB 12.8 gm/dL (11.4-16.0); Lymphocytes # (A) 1.7 k/uL (1.0-4.8); Lymphocytes % (A) 30 %; MCH 29.5 pg (25.0-35.0); MCHC 33.3 g/dL (31.0-37.0); MCV 88.6 fL (80.0-100.0); Mean Platelet Volume 7.2; Monocytes # (A) 0.3 k/uL (0-1.0); Monocytes % (A) 5 %; Neutrophils # (A) 3.6 k/uL (1.3-7.7); Neutrophils % (A) 62 %; Platelet Count 321 k/uL (150-450); RBC 4.35 m/uL (3.80-5.40); RDW 12.8 % (11.5-15.5); WBC 5.8 k/uL (3.8-10.6)
[2022-08-29 13:41] LABS: Albumin 4.7 g/dL (3.5-5.0); Calcium 9.5 mg/dL (8.4-10.2); Total Bilirubin 0.5 mg/dL (0.2-1.3)
[2022-08-29 13:44] LABS: Appearance,Urine Clear (Clear); Bacteria,Urine Moderate /hpf; Bilirubin,Urine Negative (Negative); Blood,Urine Moderate (Negative); Color,Urine Colorless; Glucose,Urine (UA) Negative (Negative); Ketones,Urine 1+ (Negative); Leukocyte Esterase,Urine Negative (Negative); Mucus,Urine Rare /hpf; Nitrite,Urine Negative (Negative); PH, Urine 5.5 (5.0-8.0); Protein,Urine Negative (Negative); RBC,Urine <1 /hpf (0-5); Specific Gravity,Urine 1.004 (1.001-1.035); Squamous Epithelial Cell,Urine 2 /hpf (0-4); Urobilinogen,Urine <2.0 mg/dL (<2.0); WBC,Urine 2 /hpf (0-5)
--- NOTE | 2022-08-29 14:57 | US ---
EXAMINATION TYPE: US transvaginal DATE OF EXAM: 08/29/2022 COMPARISON: CT, US CLINICAL HISTORY: DUB, pain. DUB, pain. Hx endometriosis, C section, 2 miscarriages. . TECHNIQUE: Transvaginal (TV). Date of LMP: 08/05/2021 EXAM MEASUREMENTS: Uterus: 10.0 x 6.3 x 5.4 cm Endometrial Stripe: 1.6 cm Right Ovary: 5.0 x 3.0 x 3.2 cm Left Ovary: Not seen with certainty. 1. Uterus: Measures upper limits. Anteverted Heterogeneous. Subcentimeter anechoic area in cervix. Subcentimeter hyperechoic focus within lower uterus. 2. Endometrium: Measures 1.6 cm. ?Appears slightly thickened. 3. Right Ovary: Appears enlarged. Anechoic area seen: 2.6 x 2.4 x 1.7 cm. 4. Left Ovary: Not seen with certainty. Spectral, color and waveform doppler imaging shows good arterial and venous flow within the right o vary. Left ovary not definitely seen 5. Bilateral Adnexa: Complex area seen within the left adnexa measurin.3 x 4.2 x 5.7 cm. Possibl e ovarian tissue versus other (possible enlarged left ovary). Arterial and venous flow shown within a nissa measured. Hyperechoic focus seen within. 6. Posterior cul-de-sac: Appears wnl IMPRESSION: Mild thickening of the endometrium. Bilateral ovarian cysts. No definite solid adnexal mass. No free fluid. No evidence of ovarian torsion. Endometrium increased slightly compared to old exam.
[2022-08-29] MEDS ORDERED: CEPHALEXIN 250 MG CAP PO STA (15:00)
--- NOTE | 2022-08-29 15:28 | ED ---
Female Urogenital HPI - General Chief complaint: Urogenital Stated complaint: pelvic pain Time Seen by Provider: 08/29/22 12:52 Source: patient Mode of arrival: ambulatory - History of Present Illness Initial comments: Patient is a 41-year-old female who presents to the emergency department with a chief complaint of pelvic pain. Patient reports low pelvic pressure, increased urinary frequency, burning with urination intermittently for the past month. Patient took a 3 day course of an antibiotic last week which she does not know the name of. Reports improvement of symptoms for a couple days which then got worse again. Has not taken any pain medication. Reports nausea without vomiting. No fever or chills. Patient also expresses concern that she has been spotting since her last period on July 18. States she takes aspirin and Plavix for brain aneurysm since this past January and ever since then her regular monthly periods have been heavier. She denies lightheadedness, dizziness, chest pain, shortness of breath. Does not have any concern for sexually transmitted infections as she is not sexually active currently. - Related Data Home Medications Medication Instructions Recorded Confirmed Ergocalciferol [Vitamin D2] 50,000 unit PO Q7D 02/21/20 02/28/20 ondansetron HCL [Zofran] 8 mg PO BID PRN 02/21/20 02/28/20 Previous Rx's Medication Instructions Recorded Metoclopramide [Reglan] 10 mg PO ACHS #12 tab 02/21/20 Pantoprazole Sodium [Protonix] 40 mg PO DAILY #20 tablet. 02/21/20 Allergies Allergy/AdvReac Type Severity Reaction Status Date / Time No Known Allergies Allergy Verified 08/29/22 12:48 Review of Systems ROS Statement: Those systems with pertinent positive or pertinent negative responses have been documented in the HPI. ROS Other: All systems not noted in ROS Statement are negative. Past Medical History Additional Past Medical History / Comment(s): sinus infection, yeast infection, ovarian cyst, endometriosis. Heavy periods History of Any Multi-Drug Resistant Organisms: None Reported Past Surgical History: Appendectomy, Section Past Anesthesia/Blood Transfusion Reactions: No Reported Reaction Past Psychological History: No Psychological Hx Reported Smoking Status: Never smoker Past Alcohol Use History: None Reported Past Drug Use History: None Reported - Past Family History Mother Family Medical History: Hyperlipidemia Father Family Medical History: Myocardial Infarction ([place]) Additional Family Medical History / Comment(s): Heavy heart disease history General Exam General appearance: alert, in no apparent distress Head exam: Present: atraumatic, normocephalic, normal inspection Respiratory exam: Present: normal lung sounds bilaterally. Absent: respiratory distress, wheezes, rales, rhonchi, stridor Cardiovascular Exam: Present: regular rate, normal rhythm, normal heart sounds. Absent: systolic murmur, diastolic murmur, rubs, gallop, clicks GI/Abdominal exam: Present: soft, tenderness (suprapubic), normal bowel sounds. Absent: distended, guarding, rebound, rigid Neurological exam: Present: alert, oriented X3, CN II-XII intact Psychiatric exam: Present: normal affect, normal mood Skin exam: Present: warm, dry, intact, normal color. Absent: rash Course Vital Signs 08/29/22 08/29/22 08/29/22 12:45 14:48 15:54 Temperature 98.3 F Pulse Rate 83 80 86 Respiratory 16 18 18 Rate Blood Pressure 119/83 121/76 116/79 O2 Sat by Pulse 100 99 99 Oximetry Medical Decision Making - Medical Decision Making Was pt. sent in by a medical professional or institution (, PA, DIRECT CHILL CASTER, urgent care, hospital, or retirement...) When possible be specific @ -[No] Did you speak to anyone other than the patient for history (EMS, parent, family, police, friend...)? What history was obtained from this source @ -[No] Did you review nursing and triage notes (agree or disagree)? Why? @ -[I reviewed and agree with nursing and triage notes] Were old charts reviewed (outside hosp., previous admission, EMS record, old EKG, old radiological studies, urgent care reports/EKG's, retirement records)? Report findings @ -[No old charts were reviewed] Differential Diagnosis (chest pain, altered mental status, abdominal pain women, abdominal pain men, vaginal bleeding, weakness, fever, dyspnea, syncope, headache, dizziness, GI bleed, back pain, seizure, CVA, palpatations, mental health)? @ -Differential Vaginal Bleeding: Spontaneous , threatened , molar , ectopic , bloody show, incompetent cervix, abruptioplacenta, placenta previa, uterine rupture, dysfunctional uterine bleeding, hemorrhage, uterine fibroids, this is not meant to be an all-inclusive list. EKG interpreted by me (3pts min.). @ -[As above] X-rays interpreted by me (1pt min.). @ -[None done] CT interpreted by me (1pt min.). @ -[None done] U/S interpreted by me (1pt. min.). @ -No. Transvaginal report shows mild thickening of the endometrium, b/l ovarian cysts, no definite solid adnexal mass, no free fluid, no ovarian tor joshua What testing was considered but not performed or refused? (CT, X-rays, U/S, l abs)? Why? @ -[None] What meds were considered but not given or refused? Why? @ -[None] Did you discuss the management of the patient with other professionals (professionals i.e. , PA, DIRECT CHILL CASTER, lab, RT, psych nurse, sr. social media & mobile manager, cellular biologist, teacher, antisubmarine weapons officer, piano case and bench assembler)? Give summary @ -[No] Was smoking cessation discussed for >3mins.? @ -[No] Was critical care preformed (if so, how long)? @ -[No] Were there social determinants of health that impacted care today? How? (Homelessness, low income, unemployed, alcoholism, drug addiction, transportation, low edu. Level, literacy, decrease access to med. care, intermediate, rehab)? @ -[No] Was there de-escalation of care discussed even if they declined (Discuss DNR or withdrawal of care, Hospice)? DNR status @ -[No] What co-morbidities impacted this encounter? (DM, HTN, Smoking, COPD, CAD, Cancer, CVA, ARF, Chemo, Hep., AIDS, mental health diagnosis, sleep apnea, morbid obesity)? @ -[None] Was patient admitted / discharged? Hospital course, mention meds given and route, prescriptions, significant lab abnormalities, going to OR and other p ertinent info. @ -discharged. ultrasound shows nonspecific changes that do not require acute intervention.hemoglobin wnl. urinalysis reveals infection. pain and nausea controlled. patient will be discharged with UTI treatment and OB referral. Given paper prescriptions of keflex, motrin 800, zofran Undiagnosed new problem with uncertain prognosis? @ -[No] Drug Therapy requiring intensive monitoring for toxicity (Heparin, Nitro, Insulin, Cardizem)? @ -[No] Were any procedures done? @ -[No] Diagnosis/symptom? @ -DUB Acute, or Chronic, or Acute on Chronic? @ -acute Uncomplicated (without systemic symptoms) or Complicated (systemic symptoms)? @ -uncomplicated Side effects of treatment? @ -[No] Exacerbation, Progression, or Severe Exacerbation? @ -[No] Poses a threat to life or bodily function? How? (Chest pain, [place], [place], pneumonia, PE, COPD, DKA, ARF, appy, cholecystitis, CVA, Diverticulitis, Homicidal, Suicidal, threat to staff... and all critical care pts) @ -[No] Diagnosis/symptom? @ -UTI Acute, or Chronic, or Acute on Chronic? @ -acute Uncomplicated (without systemic symptoms) or Complicated (systemic symptoms)? @ -uncomplicated Side effects of treatment? @ -[none] Exacerbation, Progression, or Severe Exacerbation] @ -[no] Poses a threat to life or bodily function? @ -[no] Dr. Valdez is my attending. - Lab Data Result diagrams: 08/29/22 13:13 08/29/22 13:13 Lab Results 08/29/22 08/29/22 08/29/22 Range/Units 13:13 13:13 13:13 WBC 5.8 (3.8-10.6) k/uL RBC 4.35 (3.80-5.40) m/uL Hgb 12.8 (11.4-16.0) gm/dL Hct 38.5 (34.0-46.0) % MCV 88.6 (80.0-100.0) fL MCH 29.5 (25.0-35.0) pg MCHC 33.3 (31.0-37.0) g/dL RDW 12.8 (11.5-15.5) % Plt Count 321 (150-450) k/uL MPV 7.2 Neutrophils % 62 % Lymphocytes % 30 % Monocytes % 5 % Eosinophils % 1 % Basophils % 1 % Neutrophils # 3.6 (1.3-7.7) k/uL Lymphocytes # 1.7 (1.0-4.8) k/uL Monocytes # 0.3 (0-1.0) k/uL Eosinophils # 0.1 (0-0.7) k/uL Basophils # 0.1 (0-0.2) k/uL Sodium 138 (137-145) mmol/L Potassium 4.0 (3.5-5.1) mmol/L Chloride 105 (98-107) mmol/L Carbon Dioxide 23 (22-30) mmol/L Anion Gap 10 mmol/L BUN 7 (7-17) mg/dL Creatinine 0.94 (0.52-1.04) mg/dL Est GFR (CKD-EPI)AfAm 88 (>60 ml/min/1.73 sqM) Est GFR (CKD-EPI)NonAf 76 (>60 ml/min/1.73 sqM) Glucose 97 (74-99) mg/dL Plasma Lactic Acid Felix (0.7-2.0) mmol/L Calcium 9.5 (8.4-10.2) mg/dL Total Bilirubin 0.5 (0.2-1.3) mg/dL AST 23 (14-36) U/L ALT 20 (4-34) U/L Alkaline Phosphatase 97 (38-126) U/L Total Protein 8.0 (6.3-8.2) g/dL Albumin 4.7 (3.5-5.0) g/dL Lipase 59 (23-300) U/L Urine Color Colorless Urine Appearance Clear (Clear) Urine pH 5.5 (5.0-8.0) Ur Specific [place] 1.004 (1.001-1.035) Urine Protein Negative (Negative) Urine Glucose (UA) Negative (Negative) Urine Ketones 1+ H (Negative) Urine Blood Moderate H (Negative) Urine Nitrite Negative (Negative) Urine Bilirubin Negative (Negative) Urine Urobilinogen <2.0 (<2.0) mg/dL Ur Leukocyte Esterase Negative (Negative) Urine RBC <1 (0-5) /hpf Urine WBC 2 (0-5) /hpf Ur Squamous Epith Cells 2 (0-4) /hpf Urine Bacteria Moderate H (None) /hpf Urine Mucus Rare H (None) /hpf 08/29/22 Range/Units 13:13 WBC (3.8-10.6) k/uL RBC (3.80-5.40) m/uL Hgb (11.4-16.0) gm/dL Hct (34.0-46.0) % MCV (80.0-100.0) fL MCH (25.0-35.0) pg MCHC (31.0-37.0) g/dL RDW (11.5-15.5) % Plt Count (150-450) k/uL MPV Neutrophils % % Lymphocytes % % Monocytes % % Eosinophils % % Basophils % % Neutrophils # (1.3-7.7) k/uL Lymphocytes # (1.0-4.8) k/uL Monocytes # (0-1.0) k/uL Eosinophils # (0-0.7) k/uL Basophils # (0-0.2) k/uL Sodium (137-145) mmol/L Potassium (3.5-5.1) mmol/L Chloride (98-107) mmol/L Carbon Dioxide (22-30) mmol/L Anion Gap mmol/L BUN (7-17) mg/dL Creatinine (0.52-1.04) mg/dL Est GFR (CKD-EPI)AfAm (>60 ml/min/1.73 sqM) Est GFR (CKD-EPI)NonAf (>60 ml/min/1.73 sqM) Glucose (74-99) mg/dL Plasma Lactic Acid Felix 0.9 (0.7-2.0) mmol/L Calcium (8.4-10.2) mg/dL Total Bilirubin (0.2-1.3) mg/dL AST (14-36) U/L ALT (4-34) U/L Alkaline Phosphatase (38-126) U/L Total Protein (6.3-8.2) g/dL Albumin (3.5-5.0) g/dL Lipase (23-300) U/L Urine Color Urine Appearance (Clear) Urine pH (5.0-8.0) Ur Specific [place] (1.001-1.035) Urine Protein (Negative) Urine Glucose (UA) (Negative) Urine Ketones (Negative) Urine Blood (Negative) Urine Nitrite (Negative) Urine Bilirubin (Negative) Urine Urobilinogen (<2.0) mg/dL Ur Leukocyte Esterase (Negative) Urine RBC (0-5) /hpf Urine WBC (0-5) /hpf Ur Squamous Epith Cells (0-4) /hpf Urine Bacteria (None) /hpf Urine Mucus (None) /hpf Disposition Clinical Impression: Urinary tract infection, Pelvic pain, DUB (dysfunctional uterine bleeding) Disposition: HOME SELF-CARE Condition: Good Instructions (If sedation given, give patient instructions): Urinary Tract Infection in Children (ED), Urinary Tract Infection in Women (ED) Additional Instructions: Take medication as directed. Follow-up with gynecology in one to 2 days. Return to the emergency department if you experience new, concerning, or worsening symptoms. Is patient prescribed a controlled substance at d/c from ED?: No Referrals: None,Stated [Primary Care Provider] - 1-2 days Yarelis Sidhu DO [Doctor of Osteopathic Medicine] - 1-2 days
[2022-08-29 15:55] VITALS: BP 116/79; PULSE 86; RESP 18
[2022-08-31 13:39] LABS: C. trachomatis,PCR Negative (Neg,Equiv); Chlamydia trachomatis Source Urine; N. gonorrhoeae,PCR Negative (Neg,Equiv); Neisseria Source Urine
== END 2022-08-29 15:56 | disposition home or self-care (01) ==
LOC: EC 12:38
DX: N39.0 Urinary tract infection, site not specified (principal); N93.8 Other specified abnormal uterine and vaginal bleeding
CPT/HCPCS: 36415; 80053; 83605; 83690; 85025; 81001; 87491; 87591; 93976; 76830; 99284; 96374; 96361; J2405; J1885

== ENCOUNTER → 2025-01-25 | Outpatient (CLI) | payer OTHER ==
[2025-01-25 14:59] VITALS: BP 116/78; PULSE 92; RESP 16; TEMP 98
--- NOTE | 2025-01-25 15:32 | P.SLEEP ---
History of Present Illness DATE: 01/25/2025 CONSULTATION/NEW PATIENT EVALUATION HISTORY OF PRESENT ILLNESS/SLEEP-WAKE EVALUATION: 44-year-old lady had been e valuated in the sleep center for possible obstructive sleep apnea hypopnea syndrome. SLEEP SCHEDULE: Usually sleep schedule 1011 PM to 66:30 AM. FALLING ASLEEP: No problems with falling asleep. DURING SLEEP: Patient snores, has multiple awakenings from sleep with episodes of palpitation, dry mouth, panic attacks, heartburn, grinding teeth. No history of hypnogogical hallucinations, sleep paralysis, or cataplexy. DURING THE DAY/WAKE STATE: In the morning patient wake up tired, has difficulties to pay attention, has problems with memory memory, concentration, irritability and anxiety. [place] sleepiness scale is 9. Patient may take nap around 2 PM. PAST MEDICAL HISTORY: Migraines, brain aneurysm, endometriosis. PAST SURGICAL HISTORY: Surgical treatment for brain aneurysm, cholecystectomy, appendectomy, . MEDICATIONS: Please see below. SOCIAL HISTORY: Please see below. FAMILY HISTORY: Please see below. REVIEW OF SYSTEMS: Snoring, multiple awakenings from sleep, episodes of palpitations, sleepiness during the day. No fevers. No double vision. No recent chest pain. No shortness of breath. No abdominal pain. No bleeding episodes. No blood in urine. No seizure episodes. PHYSICAL EXAMINATION: GENERAL: A pleasant patient without any distress. VITAL SIGNS: Please see below, weight 175 pounds, BMI 30.9. HEENT: PERRLA, EOMI. Evaluation of oropharynx showed tongue protrudes midline, low position of soft palate Mallampati 34, wide pillars, retrognathia 1 mm. NECK: Supple. No JVD. Thyroid is not palpable. 14 inches in circumference. LUNGS: Clear to percussion and to auscultation. Good air exchange. No wheezing or rhonchi. HEART: S1, S2 regular. No murmurs, gallops or rubs. ABDOMEN: Soft and nontender. Bowel sounds are present. No organomegaly khang reciated. EXTREMITIES: No clubbing or cyanosis. FACULTY INSTRUCTOR: Awake, alert, and oriented x3. Cranial nerves 2 to 7 intact. There is no fasciculation or atrophy noted. No focal deficits observed. ASSESSMENT: 1. Snoring, multiple awakenings from sleep, small oropharyngeal airspace low position of soft palate Mallampati 34, episodes of sleepiness during the day with [place] Sleepiness Scale 9. Obstructive sleep apnea hypopnea syndrome. 2. Migraines and tension headaches. 3. Anxiety. 4. History of brain aneurysm with status post surgical treatment. 5. History of endometriosis. 6 . Status post . 7. Status post cholecystectomy. 8. Very mild obesity by body mass index 30.9. PLAN: 1. Polysomnography for evaluation of patient's breathing during sleep. 2. Following plan after reading sleep study. 3. Preferable position during sleep on the side. 4. No driving if patient feels any sleepiness. Patient is aware of civil and criminal liability for unsafe driving. 5. Sleep hygiene with regular sleep time for at least 7.5-8 hours. 6. Watching weight. Thank you very much for referring this patient for consultation. Sincerely, Umer Mcbride MD, PhD, FAASM. Diplomat of [place] [employer], Sleep Medicine Board by [place] [employer] [place] [employer] Film Inspector [facility] [place] cc: Ang Meyers MD Past Medical History Past Medical History: Asthma, GERD/Reflux Additional Past Medical History / Comment(s): sinus infection, yeast infection, ovarian cyst, endometriosis, BRAIN ANEURYSM X2, 1 TREATED, HEADACHES, INERSTITIAL CYSTITIS. Heavy periods History of Any Multi-Drug Resistant Organisms: None Reported Past Surgical History: Appendectomy, Section Additional Past Surgical History / Comment(s): PIPELINE FLEX EMBOLIZATION DEVICE WITH SHIELD INSERTION FOR BRAIN EMBOLISM 2021 Past Anesthesia/Blood Transfusion Reactions: No Reported Reaction Past Psychological History: Anxiety, Depression Smoking Status: Never smoker Past Alcohol Use History: None Reported Past Drug Use History: None Reported - Past Family History Mother Family Medical History: Hyperlipidemia, Liver Disease, Osteoarthritis (OA), Thyroid Disorder Additional Family Medical History / Comment(s): MENTAL ILLNESS Father Family Medical History: Coronary Artery Disease (CAD), Myocardial Infarction ([place]), Sleep Apnea/CPAP/BIPAP Additional Family Medical History / Comment(s): Heavy heart disease history, MENTAL ILLNESS, HEADACHES Medications and Allergies Home Medications Medication Instructions Recorded Confirmed Type Ergocalciferol [Vitamin D2] 50,000 unit PO Q7D 02/21/20 02/28/20 History Metoclopramide [Reglan] 10 mg PO ACHS #12 tab 02/21/20 02/28/20 Rx Pantoprazole Sodium [Protonix] 40 mg PO DAILY #20 tablet.dr 02/21/20 02/28/20 Rx ondansetron HCL [Zofran] 8 mg PO BID PRN 02/21/20 01/25/25 History ALPRAZolam [Xanax] 0.25 mg PO DIRECTED PRN 01/25/25 01/25/25 History Aspirin 325 mg PO DAILY 01/25/25 01/25/25 History Loratadine 10 mg PO DAILY 01/25/25 01/25/25 History Magnesium Gluconate [Magonate] 400 mg PO DAILY 01/25/25 01/25/25 History Rimegepant Sulfate [Nurtec Odt] 75 mg PO DAILY 01/25/25 01/25/25 History Allergies Allergy/AdvReac Type Severity Reaction Status Date / Time No Known Allergies Allergy Verified 08/29/22 12:48 Physical Exam Vitals: Vital Signs Temp Pulse Resp BP Pulse Ox 01/25/25 14:58 98 F 92 16 116/78 99 Intake and Output 01/25/25 01/25/25 01/25/25 06:59 14:59 22:59 Other: Weight 79.379 kg Sleep Note - Sleep Data ESS Total: 9 - Sleep Note Sleep Note: Temperature: 98 F Pulse Rate: 92 Respiratory Rate: 16 Blood Pressure: 116/78 SpO2: 99 Height: 5 ft 3 in Weight: 79.379 kg BMI: Neck Circumference: 14
== END ==
LOC: 3 N SLEEP 14:21
PROVIDERS: ATTEND Internal Medicine
DX: G47.33 Obstructive sleep apnea (adult) (pediatric) (principal); G43.909 Migraine, unspecified, not intractable, without status migrainosus; F41.9 Anxiety disorder, unspecified; E66.9 Obesity, unspecified; G44.229 Chronic tension-type headache, not intractable; Z68.30 Body mass index [BMI] 30.0-30.9, adult; Z90.49 Acquired absence of other specified parts of digestive tract; Z98.890 Other specified postprocedural states; Z87.42 Personal history of other diseases of the female genital tract; Z87.891 Personal history of nicotine dependence
CPT/HCPCS: 99211

== ENCOUNTER 2025-03-08 19:41 | Outpatient (CLI) | payer OTHER | END 2025-03-09 05:00 | disposition home or self-care (01) | LOC: 3 N SLEEP 19:41 | PROVIDERS: ATTEND Internal Medicine | DX: G47.33 Obstructive sleep apnea (adult) (pediatric) (principal); Z87.891 Personal history of nicotine dependence | CPT/HCPCS: 95810 ==